=== PATIENT | male | born 1995 | race Caucasian/White ===

== ENCOUNTER 2017-01-20 20:59 | Emergency (ER) | payer OTHER ==
[2017-01-20 21:08] VITALS: BP 116/76
--- NOTE | 2017-01-20 21:21 | ED Physician Documentation ---
PD HPI UPPER EXT INJURY - Stated complaint Stated Complaint: FINGER LAC - Chief complaint Chief Complaint: Laceration - History obtained from History obtained from: Patient - History of Present Illness Location: Right, Finger Type of injury: Laceration Timing - onset: Enter time (20:30), Today Timing - details: Abrupt onset Pain level now: 2 Associated symptoms: No: Weakness, Numbness Recently seen: Not recently seen - Additonal information Additional information: sustained right third finger laceration tonight approximately 8:30 PM on sharp edge of metal. he is left-hand dominant. UTD on tetanus (approximately 3 years ago) Review of Systems Skin: reports: Laceration (s) Neurologic: denies: Focal weakness, Numbness PD PAST MEDICAL HISTORY - Past Medical History Past Medical History: No - Allergies Allergies/Adverse Reactions: Allergies Allergy/AdvReac Type Severity Reaction Status Date / Time No Known Drug Allergies Allergy Verified 01/20/17 21:07 - Living Situation Living Arrangement: reports: At home PD ED PE NORMAL - Vitals Vital signs reviewed: Yes - General General: Alert and oriented X 3, No acute distress, Well developed/nourished - Extremities Extremities: No tenderness to palpate, Normal ROM s pain - Neuro Neuro: No motor deficit, No sensory deficit PD ED PE EXPANDED - Extremities DELFIN UE/Hands Visual: 1 - laceration (1 cm total length beveled laceration) Results - Vitals Vitals: Vital Signs - 24 hr 01/20/17 21:03 Heart Rate 84 Blood Pressure 116/76 O2 Saturation 96 Oxygen O2 Source Room air Procedures - Laceration (location) Finger right Dorsal Length in cm: 1 Wound type: Curved Neurovascular status: Sensory intact, Motor intact, Vascular intact Tendon involvement: Tendon intact Anesthesia: Lidocaine 1% Wound Preparation: Hibiclens Skin layer closure: Nylon, Interrupted (one interrupted suture; the rest are running), Running, Size #-0 - enter number (5-0) Other: Patient tolerated well, No complications, Neurovascular intact, Dressing applied, Tetanus UTD Complexity: Simple PD MEDICAL DECISION MAKING - ED course Complexity details: considered differential, d/w patient Departure - Departure Disposition: 01 Home, Self Care Clinical Impression: Laceration Condition: Good Instructions: ED Laceration Ext Sutr Stap Tape Follow-Up: NIKI Ching [Provider Group] (1 week for suture removal) Discharge Date/Time: 01/20/17 22:39
[2017-01-20] MEDS ORDERED: LIDOCAINE 1% 50 ML MDV SUBQ STA (21:45)
[2017-01-20] MEDS ORDERED: LIDOCAINE 1% 2 ML VIAL ONE (21:50)
[2017-01-20] MEDS ORDERED: BACITRACIN OINT TOP STA (22:16)
== END 2017-01-20 22:39 | disposition home or self-care (01) ==
LOC: ED 20:59
DX: S61.212A Laceration without foreign body of right middle finger without damage to nail, initial encounter (principal); W26.8XXA Contact with other sharp object(s), not elsewhere classified, initial encounter; Y92.019 Unspecified place in single-family (private) house as the place of occurrence of the external cause
CPT/HCPCS: 12001; 99282; 99283